=== PATIENT | female | born 1950 | race Caucasian/White ===

== ENCOUNTER 2021-01-10 16:08 | Inpatient (IN) | payer OTHER, SELFPAY ==
[2021-01-10 17:19] VITALS: BMI 17.6
[2021-01-10 19:57] VITALS: BP 107/54; PULSE 67; RESP 18; TEMP 36.3; O2SAT 98
--- NOTE | 2021-01-10 20:36 | PC.NURSE ---
Patient arrived on unit 1630 via ambulance from [place] ED. Patient placed on 5 min safety checks. Dx: Bipolar. Legal: CV all orders received from Dr Clemente. Safety checks now q 15 min. All medications reconciled with [facility] pharmacy in [place]. Patient alert and oriented x 3. No confusion now. Reports depression and anxiety. Patient's a year ago. Patient denies SI. Patient denies AH/VH. Tox screen is negative. Covid 19 status: negative. EKG on 01/08/2021 normal Patient's admission assessment to be completed when patient available. All legals and admission paperwork signed by patient. Medical dx: COPD, Hyperlipidemia, Hypothyroid.
[2021-01-10] MEDS: OXcarbazepine 300 MG TABLET 600 MG PO (21:11)
[2021-01-10] MEDS: Atorvastatin Calcium 10 MG TABLET PO (21:11)
[2021-01-11 09:33] VITALS: BP 99/53; PULSE 60; RESP 18; TEMP 37; O2SAT 97
[2021-01-11] MEDS: Escitalopram Oxalate 10 MG TABLET PO (09:39)
[2021-01-11] MEDS: OXcarbazepine 300 MG TABLET PO (09:39)
[2021-01-11] MEDS: Acetaminophen 325 MG TABLET 650 MG PO (09:39)
[2021-01-11 13:54] VITALS: BMI 17.6
--- NOTE | 2021-01-11 13:59 | MHC.CLN ---
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
--- NOTE | 2021-01-11 14:41 | HO.PSYADMNOT ---
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 The patient carries a diagnosis of bipolar disorder diagnosis in her late 30s with a prior admission to the hospital when she was 24 due to suicidal ideation. She has been following outpatient services in [place] and for the last months, she had had several of well-being checks by the police due to her failure to thrive. The patient reported that her last February and since then she has had depressive symptoms elicited by depressed mood, anhedonia, lack of energy, feelings of hopelessness and passive suicidal ideation. She had a fracture her hip last August, she got surgery and then listened to subacute rehab but when she was referred to her home the patient showed severe anhedonia and she was on her bed unable to opening the door for [employer] Whe[employer]. Her son called several times to the hospital in the last weeks for safety checks to the police. The patient was visited by the police and a safety check and she was lying on her bed and able to take care of herself. Apparently she has lost more than 50 lb in the last 6 months and she has passive suicidal ideation with severe depressive symptoms. On interview, the patient denies manic symptoms she denies active suicidal ideation but she admitted to passive suicidal ideation and she was unable to take care of herself. Past Psychiatric History: She was diagnosed of bipolar disorder her early 30s, her 1st psychiatric admission was in his mid 20s for suicidal attempt by cutting herself on the neck. She attends regularly treatment for psychiatric treatment at [facility]. Medical Evaluation Reviewed: Hospitalist Oneil Pending [facility] Narrative: Hypothyroidism, Increased lipid profile Osteoporosis. Narrative: Reduction of hip fracture Family History: Her mother suffer from depression Social History: The patient is the 3rd of 4 siblings, her milestones were achieved at expected age, she was raised by her parents that she had a good childhood. She got her GED and later sheath into college. She was in her 20s and she had 1 child. 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 She reported that she has good social support provided by her son Substance History: . Denies Trauma History: Denies. Diagnostics Vital Signs (24Hr): Vital Signs - 24 hr 01/10/21 19:57 01/11/21 09:33 Temperature 97.3 F 98.6 F Pulse Rate 67 60 Respiratory Rate 18 18 Blood Pressure 107/54 L 99/53 L Pulse Oximetry 98 97 Body Mass Index 17.6 Meds/Allergies Meds Home Medications Acetaminophen (Acetaminophen 325 Mg Tablet) 650 mg PO Q6H PRN PRN Reason: Headache/Pain Mild Scale (1-3) Last Admin: 01/11/21 09:39 Dose: 650 mg Documented by: Al Hydroxide/Mg Hydroxide (Magnesium Hydrox/Alum Hydrox 30 Ml Oral.Susp) 30 ml PO Q6H PRN PRN Reason: Heartburn/Nausea Atorvastatin Calcium (Atorvastatin Calcium 10 Mg Tablet) 10 mg PO BEDTIME [facility] Last Admin: 01/10/21 21:11 Dose: 10 mg Documented by: Escitalopram Oxalate (Escitalopram Oxalate 10 Mg Tablet) 10 mg PO DAILY [facility] Last Admin: 01/11/21 09:39 Dose: 10 mg Documented by: Hydroxyzine HCl (Hydroxyzine Hcl 25 Mg Tablet) 25 mg PO BEDTIME PRN PRN Reason: Anxiety Levothyroxine Sodium (Levothyroxine Sodium 75 Mcg Tablet) 75 mcg PO DAILY@0600 [facility] Last Admin: 01/11/21 09:49 Dose: Not Given Documented by: Magnesium Hydroxide (Milk Of Magnesia 30 Ml Oral.Susp) 30 ml PO DAILY PRN PRN Reason: Constipation Non-Formulary Medication (Melatonin) 6 mg PO BEDTIME PRN PRN Reason: Insomnia Oxcarbazepine (Oxcarbazepine 300 Mg Tablet) 600 mg PO BEDTIME [facility] Last Admin: 01/10/21 21:11 Dose: 600 mg Documented by: Oxcarbazepine (Oxcarbazepine 300 Mg Tablet) 300 mg PO DAILY [facility] Last Admin: 01/11/21 09:39 Dose: 300 mg Documented by: Trazodone HCl (Trazodone Hcl 50 Mg Tablet) 50 mg PO BEDTIME PRN PRN Reason: Insomnia Allergies Allergies Allergy/AdvReac Type Severity Reaction Status Date / Time codeine AdvReac Gastrointestinal Verified 01/10/21 17:29 Upset Mental Status Exam Mental Status Exam Patient Appearance: Well Grooomed and Unkempt Patient Orientation: Person Level of Consciousness: Awake Patient Behavior: Appropriate Mood Description: Calm and Constricted Affect Description: Depressed Patient Cognition Impaired: No Ability to Follow Directions: Good Speech Pattern: Clear Hallucinations: None Delusions: Not Present Thought Process: Intact Thought Content: positive for Circumstantial Depressive Symptoms: Changes in Appetite, Crying Spells and Significant Weight Loss Judgement: Fair Judgement and Insight: Limited insight Assessment & Plan Assessment & Plan (1) Bipolar disorder with severe depression: Status: Acute Code(s): F31.4 - Bipolar disorder, current episode depressed, severe, without psychotic features Assessment and Plan: The patient is an elderly female with a long history of bipolar with several psychosocial stressors such as the of her , recent hip fracture and limited social support with failure to thrive and passive suicidal ideation. Plan 1. Continue Trileptal as mood stabilizer. 2 discontinue Citalopram . 3. Start Wellbutrin to target depression. 4. Gather collateral information. 5. Arrange a family meeting with her son. Reason for continued inpatient stay Substantial Risk for: harm to self, inability to function, rapid decompensation and med/psych decompensation
[2021-01-11 18:33] VITALS: BP 115/53; PULSE 63; RESP 17; TEMP 36.6; O2SAT 98
[2021-01-11] MEDS: OXcarbazepine 300 MG TABLET 600 MG PO (21:00)
[2021-01-11] MEDS: Atorvastatin Calcium 10 MG TABLET PO (21:00)
[2021-01-12] MEDS: Levothyroxine Sodium 75 MCG TABLET PO (07:01)
[2021-01-12 09:27] VITALS: BP 103/52; PULSE 65; RESP 16; TEMP 37.1; O2SAT 98
[2021-01-12] MEDS: buPROPion HCl XL 150 MG TAB.ER.24H PO (09:28)
[2021-01-12] MEDS: OXcarbazepine 300 MG TABLET PO (09:31)
[2021-01-12] MEDS: Acetaminophen 325 MG TABLET 650 MG PO (09:31)
--- NOTE | 2021-01-12 11:50 | P.PNPSI_ITS ---
Subjective Subjective Date of Service: 01/12/21 Reason For Visit: depression Subjective Notes: Conditional Voluntary Healthcare Proxy: No Guardianship: No Medical Problems Affecting Mental Status: No Interim History: The nursing staff reported the patient has been quiet and dysphoric, a little snacking times. Today we had a meeting with her son over Zoom and he reported no history of manic episodes and depressive episodes that has impacted his relation. Today she reported that she is depressed but no side effects with the change of medication. Her son described that her mood remains unstable bleeding episodes of darell and depression and currently she is depressed. We have discussed about treatment options regarding mood stabilizers. Medication Compliance: Yes Side effects from medications: No Attending Groups: Yes Review of Systems Acute medical concerns: No Medical Review of Systems: unchanged Mental Status Exam Mental Status Exam Patient Appearance: Appropriate Patient Orientation: Person, Place and Situation Level of Consciousness: Awake Patient Behavior: Guarded and Cooperative Mood Description: Withdrawn Affect Description: Depressed Patient Cognition Impaired: No Ability to Follow Directions: Fair Speech Pattern: Clear Hallucinations: None Delusions: Not Present Thought Process: Slowed Thinking Thought Content: positive for Circumstantial and positive for Poverty of Content Judgement: Fair Diagnostics Vital Signs (24Hr): Vital Signs - 24 hr 01/11/21 18:33 01/12/21 09:27 Temperature 97.9 F 98.7 F Pulse Rate 63 65 Respiratory Rate 17 16 Blood Pressure 115/53 L 103/52 L Pulse Oximetry 98 98 Body Mass Index 17.6 Medications Medications Current Medications Acetaminophen (Acetaminophen 325 Mg Tablet) 650 mg PO Q6H PRN PRN Reason: Headache/Pain Mild Scale (1-3) Last Admin: 01/12/21 09:31 Dose: 650 mg Documented by: Al Hydroxide/Mg Hydroxide (Magnesium Hydrox/Alum Hydrox 30 Ml Oral.Susp) 30 ml PO Q6H PRN PRN Reason: Heartburn/Nausea Atorvastatin Calcium (Atorvastatin Calcium 10 Mg Tablet) 10 mg PO BEDTIME [facility] Last Admin: 01/11/21 21:00 Dose: 10 mg Documented by: Bupropion HCl (Bupropion Hcl Xl 150 Mg Tab.Er.24h) 150 mg PO DAILY [facility] Last Admin: 01/12/21 09:28 Dose: 150 mg Documented by: Hydroxyzine HCl (Hydroxyzine Hcl 25 Mg Tablet) 25 mg PO BEDTIME PRN PRN Reason: Anxiety Levothyroxine Sodium (Levothyroxine Sodium 75 Mcg Tablet) 75 mcg PO DAILY@0600 [facility] Last Admin: 01/12/21 07:01 Dose: 75 mcg Documented by: Magnesium Hydroxide (Milk Of Magnesia 30 Ml Oral.Susp) 30 ml PO DAILY PRN PRN Reason: Constipation Non-Formulary Medication (Melatonin) 6 mg PO BEDTIME PRN PRN Reason: Insomnia Oxcarbazepine (Oxcarbazepine 300 Mg Tablet) 600 mg PO BEDTIME [facility] Last Admin: 01/11/21 21:00 Dose: 600 mg Documented by: Oxcarbazepine (Oxcarbazepine 300 Mg Tablet) 300 mg PO DAILY [facility] Last Admin: 01/12/21 09:31 Dose: 300 mg Documented by: Trazodone HCl (Trazodone Hcl 50 Mg Tablet) 50 mg PO BEDTIME PRN PRN Reason: Insomnia Allergies Allergies Allergy/AdvReac Type Severity Reaction Status Date / Time codeine AdvReac Gastrointestinal Verified 01/10/21 17:29 Upset Assessment & Plan Assessment & Plan (1) Bipolar disorder with severe depression: Status: Acute Code(s): F31.4 - Bipolar disorder, current episode depressed, severe, without psychotic features Assessment and Plan: The patient is an elderly female with a long history of bipolar with several psychosocial stressors such as the of her , recent hip fracture and limited social support with failure to thrive and passive suicidal ideation. Plan 1. Continue Trileptal as mood stabilizer. 2 discontinue Citalopram . 3. Keep Wellbutrin to target depression. 4. Gather collateral information. Greater than 50% of the session was spent on counseling and/or coordination of care Reason for contiued inpatient stay Substantial Risk for: inability to function, rapid decompensation and med/psych decompensation
--- NOTE | 2021-01-12 15:05 | PM.IMCN ---
History of Present Illness Data of Consult Service Date: 01/12/21 Requesting physician: Parker Bolton Primary Care Provider: Unknown Physician HPI Reason for consult: Medical H&P This is a 70 yo F who is admitted to the [facility]. Medical consult for Medical H&P. Patient is seen and examined in her room. She reports constipation but otherwise no physical complaints. Review of Systems Review of Systems: General - no fevers or chills Cardiovascular - no chest pain Respiratory - no shortness of breath or cough Abdominal- no abdominal pain, nausea, vomiting, diarrhea Yes all other systems are reviewed and are negative (psych not reviewed) [facility] Medical History (Updated 01/12/21 @ 15:21 by James Lewis MD) Hyperlipidemia Hypothyroidism Pertinent family history: Depression in mother Surgical History (Updated 01/12/21 @ 15:18 by James Lewis MD) History of hip surgery Social History Household Members: None Housing: House Do you presently have visiting nurse or other home services: No Unable to assess alcohol history related to: Unknown Patient Tobacco Use Status: Former Tobacco user Tobacco use type: Cigarette Smoked in Last 30 Days: No e-Cigarette/Vaping Use: Former Use Patient Interested in Nicotine Replacement: No Patient Given Instructions on How to Stop Smoking: No (Pt. reports quitting a long time ago ) Second Hand Smoke Exposure: No Use of substances other than those prescribed or required for medical reasons: Unknown Currently Displaying Signs/Symptoms of Drug Intoxication Withdrawal: No Advance Directives: No Advance Directives Information Provided: No Do you have thoughts of harming others: None Do you have a plan to hurt others: No Plan Recently lost weight without trying: Yes How much weight loss: 34pounds or more Eating poorly because of decreased appetite: Yes Nutrition screen score: 7 Nutrition Risks: Anorexia Patient : No : No Poor oral hygiene: No service: No Sexual orientation: Straight/Heterosexual Meds Allergies Allergy/AdvReac Type Severity Reaction Status Date / Time codeine AdvReac Gastrointestinal Verified 01/10/21 17:29 Upset Active Medications: Current Medications Acetaminophen (Acetaminophen 325 Mg Tablet) 650 mg PO Q6H PRN PRN Reason: Headache/Pain Mild Scale (1-3) Last Admin: 01/12/21 09:31 Dose: 650 mg Documented by: Al Hydroxide/Mg Hydroxide (Magnesium Hydrox/Alum Hydrox 30 Ml Oral.Susp) 30 ml PO Q6H PRN PRN Reason: Heartburn/Nausea Atorvastatin Calcium (Atorvastatin Calcium 10 Mg Tablet) 10 mg PO BEDTIME [facility] Last Admin: 01/11/21 21:00 Dose: 10 mg Documented by: Bupropion HCl (Bupropion Hcl Xl 150 Mg Tab.Er.24h) 150 mg PO DAILY [facility] Last Admin: 01/12/21 09:28 Dose: 150 mg Documented by: Docusate Sodium (Docusate Sodium 100 Mg Capsule) 100 mg PO BID PRN PRN Reason: Constipation Hydroxyzine HCl (Hydroxyzine Hcl 25 Mg Tablet) 25 mg PO BEDTIME PRN PRN Reason: Anxiety Levothyroxine Sodium (Levothyroxine Sodium 75 Mcg Tablet) 75 mcg PO DAILY@0600 [facility] Last Admin: 01/12/21 07:01 Dose: 75 mcg Documented by: Magnesium Hydroxide (Milk Of Magnesia 30 Ml Oral.Susp) 30 ml PO DAILY PRN PRN Reason: Constipation Non-Formulary Medication (Melatonin) 6 mg PO BEDTIME PRN PRN Reason: Insomnia Oxcarbazepine (Oxcarbazepine 300 Mg Tablet) 600 mg PO BEDTIME [facility] Last Admin: 01/11/21 21:00 Dose: 600 mg Documented by: Oxcarbazepine (Oxcarbazepine 300 Mg Tablet) 300 mg PO DAILY [facility] Last Admin: 01/12/21 09:31 Dose: 300 mg Documented by: Trazodone HCl (Trazodone Hcl 50 Mg Tablet) 50 mg PO BEDTIME PRN PRN Reason: Insomnia Home Medications Medication Instructions Recorded Confirmed Last Taken Type citalopram 40 mg PO DAILY 01/10/21 01/10/21 Unknown History levothyroxine 75 mcg capsule 75 mcg PO DAILY 01/10/21 01/10/21 Unknown History melatonin 5 mg tablet 5 mg PO BEDTIME PRN 01/10/21 01/10/21 Unknown History oxcarbazepine 300 mg tablet 300 mg PO QAM 01/10/21 01/10/21 Unknown History oxcarbazepine 300 mg tablet 600 mg PO BEDTIME 01/10/21 01/10/21 Unknown History simvastatin 20 mg tablet 20 mg PO BEDTIME 01/10/21 01/10/21 Unknown History Physical Exam Vital Signs and Narrative: Vital Signs: Last Vital Signs Temp 98.7 F 01/12/21 09:27 Pulse 65 01/12/21 09:27 Resp 16 01/12/21 09:27 BP 103/52 L 01/12/21 09:27 Pulse Ox 98 01/12/21 09:27 Body Mass Index 17.6 Const: Other: Constitutional - Awake and Alert, No apparent distress Eyes - PERRLA, EOMI Cardiovascular - S1S2, RRR, No edema Respiratory - Normal lung expansion, Normal respiratory effort, No respiratory distress, CTA bilaterally Gastrointestinal - NT / ND; +BS; No rebound or guarding - No CVA tenderness Extremities - no calf tenderness bilaterally, no swelling Musculoskeletal - Normal inspection, normal ROM Skin - Warm/Dry Neurological - Alert & oriented x3, No focal deficit Assessment and Plan (1) Routine medical exam: Status: Acute This is a 70 yo F admitted to [facility]. Medical services consulted for routine medical H&P. Patient is medically stable at this time. She does complain of some constipation, but otherwise no issues. Continue her baseline synthroid / statin. Will sign off. Please re-consult PRN.
--- NOTE | 2021-01-12 15:42 | MHC.CLN ---
F/U PATIENT REPORTED THAT SHE IS EATING OK AND DISLIKES ENSURE. DOES NOT WANT SUPPLEMENT AND DISCONTINUED. DISCUSSED WITH STAFF PROVIDING SNACKS FROM UNIT. CONTINUE TO FOLLOW,
[2021-01-12] MEDS: OXcarbazepine 300 MG TABLET 600 MG PO (20:23)
[2021-01-12 21:38] VITALS: BP 115/54; PULSE 60; RESP 17; TEMP 37.1; O2SAT 99
[2021-01-12] MEDS: Atorvastatin Calcium 10 MG TABLET PO (22:15)
[2021-01-13] MEDS: Levothyroxine Sodium 75 MCG TABLET PO (06:03)
[2021-01-13 08:00] VITALS: BP 118/58; PULSE 60; TEMP 36.7; O2SAT 98
[2021-01-13] MEDS: OXcarbazepine 300 MG TABLET PO (09:48)
[2021-01-13] MEDS: buPROPion HCl XL 150 MG TAB.ER.24H PO (09:48)
[2021-01-13 18:00] VITALS: BP 88/57; PULSE 63; RESP 17; TEMP 36.7; O2SAT 98
[2021-01-13] MEDS: OXcarbazepine 300 MG TABLET 600 MG PO (19:50)
[2021-01-13] MEDS: Atorvastatin Calcium 10 MG TABLET PO (19:50)
--- NOTE | 2021-01-13 21:04 | HO.PSYCHPN ---
Subjective Subjective Date of Service: 01/14/21 Reason For Visit: depression Healthcare Proxy: No Guardianship: No Medical Problems Affecting Mental Status: No Interim History: Pt is calm and cooperative. H and P reviewed. No complaints. Does state she feeels depressed. No SI. Wellbutrin added. Medication Compliance: Yes Review of Systems Acute medical concerns: No Medical Review of Systems: unchanged Review of Systems Review of Systems General - no fevers or chills Cardiovascular - no chest pain Respiratory - no shortness of breath or cough Abdominal- no abdominal pain, nausea, vomiting, diarrhea Yes all other systems are reviewed and are negative (psych not reviewed) Mental Status Exam Mental Status Exam Patient Appearance: Appropriate Patient Orientation: Person, Place and Situation Level of Consciousness: Awake Patient Behavior: Guarded and Cooperative Mood Description: Withdrawn Affect Description: Depressed Patient Cognition Impaired: No Ability to Follow Directions: Fair Speech Pattern: Clear Thought Content: positive for Poverty of Content Depressive Symptoms: Unhappiness Judgement: Fair Diagnostics Vital Signs (24Hr): Vital Signs - 24 hr 01/12/21 21:38 01/13/21 08:00 01/13/21 18:00 Temperature 98.7 F 98.0 F 98.1 F Pulse Rate 60 60 63 Respiratory Rate 17 17 Blood Pressure 115/54 L 118/58 L 88/57 L Pulse Oximetry 99 98 98 Body Mass Index 17.6 Medications Medications Current Medications Acetaminophen (Acetaminophen 325 Mg Tablet) 650 mg PO Q6H PRN PRN Reason: Headache/Pain Mild Scale (1-3) Last Admin: 01/12/21 09:31 Dose: 650 mg Documented by: Al Hydroxide/Mg Hydroxide (Magnesium Hydrox/Alum Hydrox 30 Ml Oral.Susp) 30 ml PO Q6H PRN PRN Reason: Heartburn/Nausea Atorvastatin Calcium (Atorvastatin Calcium 10 Mg Tablet) 10 mg PO BEDTIME [facility] Last Admin: 01/13/21 19:50 Dose: 10 mg Documented by: Bupropion HCl (Bupropion Hcl Xl 150 Mg Tab.Er.24h) 150 mg PO DAILY [facility] Last Admin: 01/13/21 09:48 Dose: 150 mg Documented by: Docusate Sodium (Docusate Sodium 100 Mg Capsule) 100 mg PO BID PRN PRN Reason: Constipation Hydroxyzine HCl (Hydroxyzine Hcl 25 Mg Tablet) 25 mg PO BEDTIME PRN PRN Reason: Anxiety Levothyroxine Sodium (Levothyroxine Sodium 75 Mcg Tablet) 75 mcg PO DAILY@0600 [facility] Last Admin: 01/13/21 06:03 Dose: 75 mcg Documented by: Magnesium Hydroxide (Milk Of Magnesia 30 Ml Oral.Susp) 30 ml PO DAILY PRN PRN Reason: Constipation Non-Formulary Medication (Melatonin) 6 mg PO BEDTIME PRN PRN Reason: Insomnia Oxcarbazepine (Oxcarbazepine 300 Mg Tablet) 600 mg PO BEDTIME [facility] Last Admin: 01/13/21 19:50 Dose: 600 mg Documented by: Oxcarbazepine (Oxcarbazepine 300 Mg Tablet) 300 mg PO DAILY [facility] Last Admin: 01/13/21 09:48 Dose: 300 mg Documented by: Trazodone HCl (Trazodone Hcl 50 Mg Tablet) 50 mg PO BEDTIME PRN PRN Reason: Insomnia Allergies Allergies Allergy/AdvReac Type Severity Reaction Status Date / Time codeine AdvReac Gastrointestinal Verified 01/10/21 17:29 Upset Assessment & Plan Assessment & Plan (1) Routine medical exam: Status: Acute Code(s): Z00.00 - Encounter for general adult medical examination without abnormal findings Assessment and Plan: Continue Wellbutrin. No other changes in meds Assessment and Plan: This is a 70 yo F admitted to [facility]. Medical services consulted for routine medical H&P. Patient is medically stable at this time. She does complain of some constipation, but otherwise no issues. Continue her baseline synthroid / statin. Will sign off. Please re-consult PRN. Greater than 50% of the session was spent on counseling and/or coordination of care Reason for contiued inpatient stay Substantial Risk for: inability to function
[2021-01-14] MEDS: Levothyroxine Sodium 75 MCG TABLET PO (05:24)
[2021-01-14 06:00] VITALS: BP 100/65; PULSE 65; RESP 18; TEMP 36.8; O2SAT 98
--- NOTE | 2021-01-14 06:49 | HO.PSYCHPN ---
Subjective Subjective Date of Service: 01/14/21 Reason For Visit: depression Interim History: Pt is calm and cooperative. H and P reviewed. Attending groups Does state she feeels depressed. Overwhelmed. Still feels fragile. I hope I feel better . No SI. Wellbutrin added. Medication Compliance: Yes Side effects from medications: No Review of Systems Medical Review of Systems: unchanged Review of Systems Review of Systems General - no fevers or chills Cardiovascular - no chest pain Respiratory - no shortness of breath or cough Abdominal- no abdominal pain, nausea, vomiting, diarrhea Yes all other systems are reviewed and are negative (psych not reviewed) Mental Status Exam Mental Status Exam Patient Appearance: Appropriate Patient Orientation: Person, Place and Situation Level of Consciousness: Awake Patient Behavior: Guarded and Cooperative Mood Description: Withdrawn Affect Description: Depressed Patient Cognition Impaired: No Ability to Follow Directions: Fair Speech Pattern: Clear Diagnostics Vital Signs (24Hr): Vital Signs - 24 hr 01/13/21 08:00 01/13/21 18:00 Temperature 98.0 F 98.1 F Pulse Rate 60 63 Respiratory Rate 17 Blood Pressure 118/58 L 88/57 L Pulse Oximetry 98 98 Body Mass Index 17.6 Medications Medications Current Medications Acetaminophen (Acetaminophen 325 Mg Tablet) 650 mg PO Q6H PRN PRN Reason: Headache/Pain Mild Scale (1-3) Last Admin: 01/12/21 09:31 Dose: 650 mg Documented by: Al Hydroxide/Mg Hydroxide (Magnesium Hydrox/Alum Hydrox 30 Ml Oral.Susp) 30 ml PO Q6H PRN PRN Reason: Heartburn/Nausea Atorvastatin Calcium (Atorvastatin Calcium 10 Mg Tablet) 10 mg PO BEDTIME [facility] Last Admin: 01/13/21 19:50 Dose: 10 mg Documented by: Bupropion HCl (Bupropion Hcl Xl 150 Mg Tab.Er.24h) 150 mg PO DAILY [facility] Last Admin: 01/13/21 09:48 Dose: 150 mg Documented by: Docusate Sodium (Docusate Sodium 100 Mg Capsule) 100 mg PO BID PRN PRN Reason: Constipation Hydroxyzine HCl (Hydroxyzine Hcl 25 Mg Tablet) 25 mg PO BEDTIME PRN PRN Reason: Anxiety Levothyroxine Sodium (Levothyroxine Sodium 75 Mcg Tablet) 75 mcg PO DAILY@0600 [facility] Last Admin: 01/14/21 05:24 Dose: 75 mcg Documented by: Magnesium Hydroxide (Milk Of Magnesia 30 Ml Oral.Susp) 30 ml PO DAILY PRN PRN Reason: Constipation Non-Formulary Medication (Melatonin) 6 mg PO BEDTIME PRN PRN Reason: Insomnia Oxcarbazepine (Oxcarbazepine 300 Mg Tablet) 600 mg PO BEDTIME [facility] Last Admin: 01/13/21 19:50 Dose: 600 mg Documented by: Oxcarbazepine (Oxcarbazepine 300 Mg Tablet) 300 mg PO DAILY [facility] Last Admin: 01/13/21 09:48 Dose: 300 mg Documented by: Trazodone HCl (Trazodone Hcl 50 Mg Tablet) 50 mg PO BEDTIME PRN PRN Reason: Insomnia Allergies Allergies Allergy/AdvReac Type Severity Reaction Status Date / Time codeine AdvReac Gastrointestinal Verified 01/10/21 17:29 Upset Assessment & Plan Assessment & Plan (1) Routine medical exam: Status: Acute Code(s): Z00.00 - Encounter for general adult medical examination without abnormal findings Assessment and Plan: Continue Wellbutrin. No other changes in meds Assessment and Plan: This is a 70 yo F admitted to [facility]. Medical services consulted for routine medical H&P. Patient is medically stable at this time. She does complain of some constipation, but otherwise no issues. Continue her baseline synthroid / statin. Will sign off. Please re-consult PRN. Greater than 50% of the session was spent on counseling and/or coordination of care Patient educated on: diagnosis Reason for contiued inpatient stay Substantial Risk for: inability to function
[2021-01-14] MEDS: buPROPion HCl XL 150 MG TAB.ER.24H PO (08:28)
[2021-01-14] MEDS: OXcarbazepine 300 MG TABLET PO (08:28)
[2021-01-14 18:00] VITALS: BP 106/55; PULSE 68; RESP 18; TEMP 35.6; O2SAT 96
[2021-01-14] MEDS: OXcarbazepine 300 MG TABLET 600 MG PO (20:17)
[2021-01-14] MEDS: Atorvastatin Calcium 10 MG TABLET PO (20:18)
[2021-01-14] MEDS: traZODone HCL 50 MG TABLET PO (21:03)
[2021-01-15] MEDS: Levothyroxine Sodium 75 MCG TABLET PO (05:28)
[2021-01-15 06:00] VITALS: BP 102/51; PULSE 68; RESP 18; TEMP 36.4; O2SAT 98
[2021-01-15 06:36] LABS: MANUAL DIFF FLAG NO
[2021-01-15 06:47] LABS: Basophils Percent Auto 0.6 % (0-2); Eosinophils Absolute Auto 0.1 X10*3/uL (0.0-0.4); Eosinophils Percent Auto 1.8 % (0-4); Hematocrit 31.8 % (37-47); Hemoglobin 10.5 g/dl (12.0-16.0); Imm Gran Abs Auto 0.01 X10*3/uL (0.00-0.03); Imm Gran Pct Auto 0.3 % (0.0-0.4); Lymphocytes Absolute Auto 0.9 X10*3/uL (1.2-4.9); Lymphocytes Percent Auto 27.3 % (20-40); Mean Corpuscular Hemoglobin 31.8 pg (27.0-33.0); Mean Corpuscular Volume 96.4 fL (80-98); Mean Platelet Volume 10.3 fL (9.4-12.3); Monocytes Absolute Auto 0.3 X10*3/uL (0.1-1.2); Monocytes Percent Auto 9.2 % (2-11); Neutrophils Percent Auto 60.8 % (45-73); Platelet Count 200 X10*3/uL (160-400); Red Cell Distribution Width 12.7 % (11.0-16.0); White Blood Count 3.3 X10*3/uL (4.8-10.8)
[2021-01-15 06:50] LABS: Estimated Average Glucose 97 mg/dL
[2021-01-15 06:51] LABS: Anion Gap 10 (12-20); Blood Urea Nitrogen 9 mg/dL (9-16); Calcium 8.2 mg/dL (8.4-10.2); Carbon Dioxide 28 mmol/L (22-29); Chloride 102 mmol/L (96-108); Cholesterol 149 mg/dL; Creatinine Clr Calc Pharmacy 77.9; Estimated Glomerular Filt Rate > 60; Glucose Random 86 mg/dL (60-115); HDL Cholesterol 51 mg/dL; LDL Cholesterol Calculated 86 mg/dl; Potassium 4.1 mmol/L (3.3-5.1); Sodium 136 mmol/L (135-145); Triglycerides 62 mg/dL
[2021-01-15 07:12] LABS: Thyroid Stimulating Hormone 1.06 uIU/mL (0.32-4.0)
[2021-01-15] MEDS: OXcarbazepine 300 MG TABLET PO (07:54)
[2021-01-15] MEDS: buPROPion HCl XL 150 MG TAB.ER.24H PO (07:54)
--- NOTE | 2021-01-15 12:38 | HO.PSYCHPN ---
Subjective Subjective Date of Service: 01/15/21 Reason For Visit: depression Subjective Notes: Conditional Voluntary Interim History: The nursing staff reported that the patient has been more social over the weekend. She has been fully compliant with treatment. Last Friday we had a family meeting with her son who reported a long history of darell and depression. On interview, the patient denies new symptoms with Wellbutrin she agreed to increase up to 300 mg a day. Will review blood work under were no new findings besides a mild anemia. Hemoglobin A1c, lipid profile and glucose were under normal limits so it is safe to use atypical antipsychotics in her case. Mental Status Exam Mental Status Exam Patient Appearance: Disheveled Patient Orientation: Person Level of Consciousness: Awake Patient Behavior: Cooperative and Passive Mood Description: Depressed Affect Description: Constricted Patient Cognition Impaired: No Ability to Follow Directions: Good Speech Pattern: Clear Memory Description: Intact Hallucinations: None Delusions: Not Present Thought Content: positive for Circumstantial Depressive Symptoms: Feelings of Worthlessness and Feelings of Guilt Judgement: Fair Diagnostics Vital Signs (24Hr): Vital Signs - 24 hr 01/14/21 18:00 01/15/21 06:00 Temperature 96.1 F L 97.5 F Pulse Rate 68 68 Respiratory Rate 18 18 Blood Pressure 106/55 L 102/51 L Pulse Oximetry 96 98 Body Mass Index 17.6 Labs Results: 01/15/21 06:18 01/15/21 06:18 Labs: Laboratory Results - last 48 hr 01/15/21 01/15/21 01/15/21 06:18 06:18 06:18 WBC 3.3 L RBC 3.30 L Hgb 10.5 L Hct 31.8 L MCV 96.4 MCH 31.8 MCHC 33.0 RDW 12.7 Plt Count 200 MPV 10.3 Immature Gran % (Auto) 0.3 Neut % (Auto) 60.8 Lymph % (Auto) 27.3 [place] % (Auto) 9.2 Eos % (Auto) 1.8 Baso % (Auto) 0.6 Lymph # (Auto) 0.9 L [place] # (Auto) 0.3 Eos # (Auto) 0.1 Baso # (Auto) 0.0 Abs Immat Gran (auto) 0.01 Absolute Neuts (auto) 2.0 Absolute Nucleated RBC 0.000 Nucleated RBC % (auto) 0.0 Sodium 136 Potassium 4.1 Chloride 102 Carbon Dioxide 28 Anion Gap 10 L BUN 9 Creatinine 0.54 Estim Creat Clear Calc 77.9 Estimated GFR > 60 Random Glucose 86 Estimat Average Glucose 97 Hemoglobin A1c % 5.0 Calcium 8.2 L Triglycerides 62 Cholesterol 149 LDL Cholesterol, Calc 86 HDL Cholesterol 51 TSH 1.06 Medications Medications Current Medications Acetaminophen (Acetaminophen 325 Mg Tablet) 650 mg PO Q6H PRN PRN Reason: Headache/Pain Mild Scale (1-3) Last Admin: 01/12/21 09:31 Dose: 650 mg Documented by: Al Hydroxide/Mg Hydroxide (Magnesium Hydrox/Alum Hydrox 30 Ml Oral.Susp) 30 ml PO Q6H PRN PRN Reason: Heartburn/Nausea Atorvastatin Calcium (Atorvastatin Calcium 10 Mg Tablet) 10 mg PO BEDTIME [facility] Last Admin: 01/14/21 20:18 Dose: 10 mg Documented by: Bupropion HCl (Bupropion Hcl Xl 300 Mg Tab.Er.24h) 300 mg PO DAILY [facility] Docusate Sodium (Docusate Sodium 100 Mg Capsule) 100 mg PO BID PRN PRN Reason: Constipation Hydroxyzine HCl (Hydroxyzine Hcl 25 Mg Tablet) 25 mg PO BEDTIME PRN PRN Reason: Anxiety Levothyroxine Sodium (Levothyroxine Sodium 75 Mcg Tablet) 75 mcg PO DAILY@0600 [facility] Last Admin: 01/15/21 05:28 Dose: 75 mcg Documented by: Magnesium Hydroxide (Milk Of Magnesia 30 Ml Oral.Susp) 30 ml PO DAILY PRN PRN Reason: Constipation Non-Formulary Medication (Melatonin) 6 mg PO BEDTIME PRN PRN Reason: Insomnia Oxcarbazepine (Oxcarbazepine 300 Mg Tablet) 600 mg PO BEDTIME [facility] Last Admin: 01/14/21 20:17 Dose: 600 mg Documented by: Oxcarbazepine (Oxcarbazepine 300 Mg Tablet) 300 mg PO DAILY [facility] Last Admin: 01/15/21 07:54 Dose: 300 mg Documented by: Trazodone HCl (Trazodone Hcl 50 Mg Tablet) 50 mg PO BEDTIME PRN PRN Reason: Insomnia Last Admin: 01/14/21 21:03 Dose: 50 mg Documented by: Allergies Allergies Allergy/AdvReac Type Severity Reaction Status Date / Time codeine AdvReac Gastrointestinal Verified 01/10/21 17:29 Upset Assessment & Plan Assessment & Plan (1) Routine medical exam: Status: Acute Code(s): Z00.00 - Encounter for general adult medical examination without abnormal findings Assessment and Plan: Continue Wellbutrin. No other changes in meds Assessment and Plan: The patient is a 62-year-old female with a long history of bipolar disorder who was admitted for failure to thrive and severe depressive symptoms. Plan 1. Increase Wellbutrin XL up to 300 mg . 2. Keep the rest the same. Greater than 50% of the session was spent on counseling and/or coordination of care Reason for contiued inpatient stay Substantial Risk for: inability to function, rapid decompensation and med/psych decompensation
--- NOTE | 2021-01-15 13:48 | MHC.CLN ---
F/U STAFF REPORTS THAT PATIENT ATE WELL TODAY AT BREAKFAST AND LUNCH. DIET=REGULAR. NO SUPPLEMENT PER PATIENT PREFERENCE. WEIGHT STABLE.
[2021-01-15 19:51] VITALS: BP 101/49; PULSE 72; RESP 16; TEMP 35.6; O2SAT 97
[2021-01-15] MEDS: OXcarbazepine 300 MG TABLET 600 MG PO (20:38)
[2021-01-15] MEDS: Atorvastatin Calcium 10 MG TABLET PO (20:39)
[2021-01-16] MEDS: Levothyroxine Sodium 75 MCG TABLET PO (05:59)
[2021-01-16 06:00] VITALS: BP 99/52; PULSE 68; TEMP 36.9; O2SAT 97
[2021-01-16] MEDS: buPROPion HCl XL 300 MG TAB.ER.24H PO (09:39)
[2021-01-16] MEDS: OXcarbazepine 300 MG TABLET PO (09:41)
--- NOTE | 2021-01-16 10:52 | P.PNPSI_ITS ---
Subjective Subjective Date of Service: 01/16/21 Reason For Visit: depression Subjective Notes: Conditional Voluntary Interim History: The nursing staff reported that the patient has been depressive and isolative, spending most of the time in her room. She has eaten in the common areas that she has attended a few groups yesterday. On interview the patient reports depressed mood and lack of energy, no side effects with the new dose of Wellbutrin. Medication Compliance: Yes Side effects from medications: No Attending Groups: Intermittent Review of Systems Acute medical concerns: No Medical Review of Systems: unchanged Mental Status Exam Mental Status Exam Patient Appearance: Well Grooomed Patient Orientation: Person and Situation Level of Consciousness: Awake Patient Behavior: Appropriate and Cooperative Mood Description: Constricted and Depressed Affect Description: Constricted Patient Cognition Impaired: No Ability to Follow Directions: Fair Speech Pattern: Clear Hallucinations: None Delusions: Not Present Thought Process: Distracted and Slowed Thinking Thought Content: positive for Circumstantial Judgement: Fair Diagnostics Vital Signs (24Hr): Vital Signs - 24 hr 01/15/21 19:51 01/16/21 06:00 Temperature 96.1 F L 98.5 F Pulse Rate 72 68 Respiratory Rate 16 Blood Pressure 101/49 L 99/52 L Pulse Oximetry 97 97 Body Mass Index 17.6 Labs Results: 01/15/21 06:18 01/15/21 06:18 Labs: Laboratory Results - last 48 hr 01/15/21 01/15/21 01/15/21 06:18 06:18 06:18 WBC 3.3 L RBC 3.30 L Hgb 10.5 L Hct 31.8 L MCV 96.4 MCH 31.8 MCHC 33.0 RDW 12.7 Plt Count 200 MPV 10.3 Immature Gran % (Auto) 0.3 Neut % (Auto) 60.8 Lymph % (Auto) 27.3 [place] % (Auto) 9.2 Eos % (Auto) 1.8 Baso % (Auto) 0.6 Lymph # (Auto) 0.9 L [place] # (Auto) 0.3 Eos # (Auto) 0.1 Baso # (Auto) 0.0 Abs Immat Gran (auto) 0.01 Absolute Neuts (auto) 2.0 Absolute Nucleated RBC 0.000 Nucleated RBC % (auto) 0.0 Sodium 136 Potassium 4.1 Chloride 102 Carbon Dioxide 28 Anion Gap 10 L BUN 9 Creatinine 0.54 Estim Creat Clear Calc 77.9 Estimated GFR > 60 Random Glucose 86 Estimat Average Glucose 97 Hemoglobin A1c % 5.0 Calcium 8.2 L Triglycerides 62 Cholesterol 149 LDL Cholesterol, Calc 86 HDL Cholesterol 51 TSH 1.06 Medications Medications Current Medications Acetaminophen (Acetaminophen 325 Mg Tablet) 650 mg PO Q6H PRN PRN Reason: Headache/Pain Mild Scale (1-3) Last Admin: 01/12/21 09:31 Dose: 650 mg Documented by: Al Hydroxide/Mg Hydroxide (Magnesium Hydrox/Alum Hydrox 30 Ml Oral.Susp) 30 ml PO Q6H PRN PRN Reason: Heartburn/Nausea Atorvastatin Calcium (Atorvastatin Calcium 10 Mg Tablet) 10 mg PO BEDTIME [facility] Last Admin: 01/15/21 20:39 Dose: 10 mg Documented by: Bupropion HCl (Bupropion Hcl Xl 300 Mg Tab.Er.24h) 300 mg PO DAILY [facility] Last Admin: 01/16/21 09:39 Dose: 300 mg Documented by: Docusate Sodium (Docusate Sodium 100 Mg Capsule) 100 mg PO BID PRN PRN Reason: Constipation Hydroxyzine HCl (Hydroxyzine Hcl 25 Mg Tablet) 25 mg PO BEDTIME PRN PRN Reason: Anxiety Levothyroxine Sodium (Levothyroxine Sodium 75 Mcg Tablet) 75 mcg PO DAILY@0600 [facility] Last Admin: 01/16/21 05:59 Dose: 75 mcg Documented by: Magnesium Hydroxide (Milk Of Magnesia 30 Ml Oral.Susp) 30 ml PO DAILY PRN PRN Reason: Constipation Non-Formulary Medication (Melatonin) 6 mg PO BEDTIME PRN PRN Reason: Insomnia Trazodone HCl (Trazodone Hcl 50 Mg Tablet) 50 mg PO BEDTIME PRN PRN Reason: Insomnia Last Admin: 01/14/21 21:03 Dose: 50 mg Documented by: Allergies Allergies Allergy/AdvReac Type Severity Reaction Status Date / Time codeine AdvReac Gastrointestinal Verified 01/10/21 17:29 Upset Assessment & Plan Assessment & Plan (1) Routine medical exam: Status: Acute Code(s): Z00.00 - Encounter for general adult medical examination without abnormal findings Assessment and Plan: Continue Wellbutrin. No other changes in meds Assessment and Plan: The patient is a 62-year-old female with a long history of bipolar disorder who was admitted for failure to thrive and severe depressive symptoms. Plan 1. Increase Wellbutrin XL up to 300 mg . 2. Increase Trileptal up to 600 mg p.o. b.i.d. Greater than 50% of the session was spent on counseling and/or coordination of care Reason for contiued inpatient stay Substantial Risk for: inability to function, rapid decompensation and med/psych decompensation
[2021-01-16] MEDS: Acetaminophen 325 MG TABLET 650 MG PO ×2 (11:53→20:12)
[2021-01-16 18:00] VITALS: BP 95/46; PULSE 68; RESP 16; TEMP 36.6; O2SAT 99
[2021-01-16] MEDS: Atorvastatin Calcium 10 MG TABLET PO (20:11)
[2021-01-16] MEDS: OXcarbazepine 300 MG TABLET 600 MG PO (20:11)
[2021-01-16] MEDS: traZODone HCL 50 MG TABLET PO (20:12)
[2021-01-17] MEDS: Levothyroxine Sodium 75 MCG TABLET PO (06:18)
[2021-01-17 08:17] VITALS: BP 103/52; PULSE 67; RESP 16; TEMP 36.8; O2SAT 97
[2021-01-17] MEDS: buPROPion HCl XL 300 MG TAB.ER.24H PO (08:19)
[2021-01-17] MEDS: OXcarbazepine 300 MG TABLET 600 MG PO ×2 (08:19→19:48)
[2021-01-17] MEDS: Docusate Sodium 100 MG CAPSULE PO (11:00)
--- NOTE | 2021-01-17 12:22 | P.PNPSI_ITS ---
Subjective Subjective Date of Service: 01/17/21 Reason For Visit: depression Interim History: Per nursing, pt slightly more visible and participating in groups, social with select peers. Pt reports improvement in symptoms of depression, however, unable to provide much information as to other changes she has noticed. She reports sleeping and eating well. She reports constipation- pt decline MOM and miralax but open to combination of senna and colace. She denies SI/HI. She does report fair energy. She reports sleeping well. Medication Compliance: Yes Side effects from medications: No Attending Groups: Intermittent Review of Systems Acute medical concerns: No Review of Systems Review of Systems General - no fevers or chills Cardiovascular - no chest pain Respiratory - no shortness of breath or cough Abdominal- no abdominal pain, nausea, vomiting, diarrhea Yes all other systems are reviewed and are negative (psych not reviewed) Mental Status Exam Mental Status Exam Narrative: Appearance: casually groomed, fair hygiene in NAD Behavior:cooperative psychomotor:no agitation or retardation noted Speech:clear, normal rate/soft tone, spontaneous Thought process:mostly linear, some poverty of thought Thought content:no overt psychosis, feeling better in terms of depression but still low energy Mood: a little bit better Affect: blunted SI:none HI:none VH/AH:none Delusions:none Insight/judgment:fair x 2 Memory/cog:alert, oriented to place, situation, month not formally tested. Diagnostics Vital Signs (24Hr): Vital Signs - 24 hr 01/17/21 08:17 Temperature 98.2 F Pulse Rate 67 Respiratory Rate 16 Blood Pressure 103/52 L Pulse Oximetry 97 Body Mass Index 17.6 Labs Results: 01/15/21 06:18 01/15/21 06:18 Medications Medications Current Medications Acetaminophen (Acetaminophen 325 Mg Tablet) 650 mg PO Q6H PRN PRN Reason: Headache/Pain Mild Scale (1-3) Last Admin: 01/17/21 17:12 Dose: 650 mg Documented by: Al Hydroxide/Mg Hydroxide (Magnesium Hydrox/Alum Hydrox 30 Ml Oral.Susp) 30 ml PO Q6H PRN PRN Reason: Heartburn/Nausea Atorvastatin Calcium (Atorvastatin Calcium 10 Mg Tablet) 10 mg PO BEDTIME [facility] Last Admin: 01/17/21 19:48 Dose: 10 mg Documented by: Bupropion HCl (Bupropion Hcl Xl 300 Mg Tab.Er.24h) 300 mg PO DAILY [facility] Last Admin: 01/17/21 08:19 Dose: 300 mg Documented by: Hydroxyzine HCl (Hydroxyzine Hcl 25 Mg Tablet) 25 mg PO BEDTIME PRN PRN Reason: Anxiety Levothyroxine Sodium (Levothyroxine Sodium 75 Mcg Tablet) 75 mcg PO DAILY@0600 [facility] Last Admin: 01/17/21 06:18 Dose: 75 mcg Documented by: Magnesium Hydroxide (Milk Of Magnesia 30 Ml Oral.Susp) 30 ml PO DAILY PRN PRN Reason: Constipation Non-Formulary Medication (Melatonin) 6 mg PO BEDTIME PRN PRN Reason: Insomnia Oxcarbazepine (Oxcarbazepine 300 Mg Tablet) 600 mg PO BID [facility] Last Admin: 01/17/21 19:48 Dose: 600 mg Documented by: Senna/Docusate Sodium (Sennosides/Docusate Sodium Tablet) 2 tab PO BEDTIME [facility] Trazodone HCl (Trazodone Hcl 50 Mg Tablet) 50 mg PO BEDTIME PRN PRN Reason: Insomnia Last Admin: 01/17/21 19:58 Dose: 50 mg Documented by: Allergies Allergies Allergy/AdvReac Type Severity Reaction Status Date / Time codeine AdvReac Gastrointestinal Verified 01/10/21 17:29 Upset Assessment & Plan Assessment & Plan (1) Routine medical exam: Status: Acute Code(s): Z00.00 - Encounter for general adult medical examination without abnormal findings Assessment and Plan: Continue Wellbutrin. No other changes in meds Assessment and Plan: The patient is a 62-year-old female with a long history of bipolar disorder who was admitted for failure to thrive and severe depressive symptoms. Plan 1. continue Wellbutrin XL up to 300 mg . 2. continue Trileptal up to 600 mg p.o. b.i.d. Greater than 50% of the session was spent on counseling and/or coordination of care Reason for contiued inpatient stay Substantial Risk for: inability to function
--- NOTE | 2021-01-17 13:45 | MHC.CLN ---
F/U PATIENT ATE 100% OF ENTREE AND DRANK 100% OF BEVERAGE THIS LUNCH. CONTINUE TO FOLLOW.
[2021-01-17] MEDS: Acetaminophen 325 MG TABLET 650 MG PO (17:12)
[2021-01-17 18:00] VITALS: BP 90/43; PULSE 76; RESP 17; TEMP 37.2; O2SAT 97
[2021-01-17] MEDS: Atorvastatin Calcium 10 MG TABLET PO (19:48)
[2021-01-17] MEDS: traZODone HCL 50 MG TABLET PO (19:58)
[2021-01-18] MEDS: Levothyroxine Sodium 75 MCG TABLET PO (05:58)
[2021-01-18 08:32] VITALS: BP 102/54; PULSE 71; RESP 14; TEMP 36.8; O2SAT 98
[2021-01-18] MEDS: buPROPion HCl XL 300 MG TAB.ER.24H PO (08:40)
[2021-01-18] MEDS: OXcarbazepine 300 MG TABLET 600 MG PO ×2 (08:40→20:32)
[2021-01-18 10:57] VITALS: BMI 19.2
--- NOTE | 2021-01-18 15:47 | HO.PSYCHPN ---
Subjective Subjective Date of Service: 01/19/21 Reason For Visit: depression Subjective Notes: Conditional Voluntary Interim History: Pt continues to report improvement in mood. She reports less depressed mood,feeling more optimistic about future. She denies SI/HI. She reports sleeping and eating well. She continues to report constipation not open to trying something different than senna at this moment. Per nursing, pt increasingly more visible in the unit, social with select peers. No behavioral concerns. Medication Compliance: Yes Side effects from medications: No Attending Groups: Yes Review of Systems Acute medical concerns: No Review of Systems Review of Systems General - no fevers or chills Cardiovascular - no chest pain Respiratory - no shortness of breath or cough Abdominal- no abdominal pain, nausea, vomiting, diarrhea Yes all other systems are reviewed and are negative (psych not reviewed) Mental Status Exam Mental Status Exam Narrative: Appearance: casually groomed, fair hygiene in NAD Behavior:cooperative psychomotor:no agitation or retardation noted Speech:clear, normal rate/soft tone, spontaneous Thought process:mostly linear, some poverty of thought Thought content:no overt psychosis, feeling better in terms of depression but still low energy Mood: a little bit better Affect: blunted SI:none HI:none VH/AH:none Delusions:none Insight/judgment:fair x 2 Memory/cog:alert, oriented to place, situation, month not formally tested. Diagnostics Vital Signs (24Hr): Vital Signs - 24 hr 01/18/21 21:19 Temperature 98.6 F Pulse Rate 66 Respiratory Rate 17 Blood Pressure 98/48 L Pulse Oximetry 99 Body Mass Index 19.2 Labs Results: 01/15/21 06:18 01/15/21 06:18 Medications Medications Current Medications Acetaminophen (Acetaminophen 325 Mg Tablet) 650 mg PO Q6H PRN PRN Reason: Headache/Pain Mild Scale (1-3) Last Admin: 01/17/21 17:12 Dose: 650 mg Documented by: Al Hydroxide/Mg Hydroxide (Magnesium Hydrox/Alum Hydrox 30 Ml Oral.Susp) 30 ml PO Q6H PRN PRN Reason: Heartburn/Nausea Atorvastatin Calcium (Atorvastatin Calcium 10 Mg Tablet) 10 mg PO BEDTIME [facility] Last Admin: 01/18/21 20:32 Dose: 10 mg Documented by: Bupropion HCl (Bupropion Hcl Xl 300 Mg Tab.Er.24h) 300 mg PO DAILY [facility] Last Admin: 01/19/21 07:58 Dose: 300 mg Documented by: Hydroxyzine HCl (Hydroxyzine Hcl 25 Mg Tablet) 25 mg PO BEDTIME PRN PRN Reason: Anxiety Levothyroxine Sodium (Levothyroxine Sodium 75 Mcg Tablet) 75 mcg PO DAILY@0600 [facility] Last Admin: 01/19/21 05:52 Dose: 75 mcg Documented by: Magnesium Hydroxide (Milk Of Magnesia 30 Ml Oral.Susp) 30 ml PO DAILY PRN PRN Reason: Constipation Non-Formulary Medication (Melatonin) 6 mg PO BEDTIME PRN PRN Reason: Insomnia Oxcarbazepine (Oxcarbazepine 300 Mg Tablet) 600 mg PO BID [facility] Last Admin: 01/19/21 07:58 Dose: 600 mg Documented by: Senna/Docusate Sodium (Sennosides/Docusate Sodium Tablet) 2 tab PO BEDTIME [facility] Last Admin: 01/18/21 20:32 Dose: 2 tab Documented by: Trazodone HCl (Trazodone Hcl 50 Mg Tablet) 50 mg PO BEDTIME PRN PRN Reason: Insomnia Last Admin: 01/18/21 21:04 Dose: 50 mg Documented by: Allergies Allergies Allergy/AdvReac Type Severity Reaction Status Date / Time codeine AdvReac Gastrointestinal Verified 01/10/21 17:29 Upset Assessment & Plan Assessment & Plan (1) Routine medical exam: Status: Acute Code(s): Z00.00 - Encounter for general adult medical examination without abnormal findings Assessment and Plan: Continue Wellbutrin. No other changes in meds Assessment and Plan: The patient is a 62-year-old female with a long history of bipolar disorder who was admitted for failure to thrive and severe depressive symptoms. Plan 1. continue Wellbutrin XL up to 300 mg . 2. continue Trileptal up to 600 mg p.o. b.i.d. Greater than 50% of the session was spent on counseling and/or coordination of care Reason for contiued inpatient stay Substantial Risk for: stable for discharge
[2021-01-18] MEDS: Atorvastatin Calcium 10 MG TABLET PO (20:32)
[2021-01-18] MEDS: Sennosides/Docusate Sodium TABLET 2 TAB PO (20:32)
[2021-01-18] MEDS: traZODone HCL 50 MG TABLET PO (21:04)
[2021-01-18 21:19] VITALS: BP 98/48; PULSE 66; RESP 17; TEMP 37; O2SAT 99
[2021-01-19] MEDS: Levothyroxine Sodium 75 MCG TABLET PO (05:52)
[2021-01-19] MEDS: buPROPion HCl XL 300 MG TAB.ER.24H PO (07:58)
[2021-01-19] MEDS: OXcarbazepine 300 MG TABLET 600 MG PO ×2 (07:58→19:36)
--- NOTE | 2021-01-19 15:10 | MHC.CLN ---
F/U PATIENT WITH SIGNIFICANT, FAVORABLE WEIGHT GAIN SINCE ADMISSION, +9.3%. BMI=19.2. RD TO FOLLOW PATIENT WEEKLY.
--- NOTE | 2021-01-19 15:50 | P.PNPSI_ITS ---
Subjective Subjective Date of Service: 01/19/21 Reason For Visit: depression Interim History: Pt reports less depressed mood,feeling more optimistic about future, hoping to go home soon. She denies SI/HI. She reports sleeping and eating well. Per nursing, pt increasingly more visible in the unit, social with select peers. No behavioral concerns. agrees to try miralax for constipation. Medication Compliance: Yes Side effects from medications: No Attending Groups: Yes Review of Systems Acute medical concerns: No Review of Systems Review of Systems General - no fevers or chills Cardiovascular - no chest pain Respiratory - no shortness of breath or cough Abdominal- no abdominal pain, nausea, vomiting, diarrhea Yes all other systems are reviewed and are negative (psych not reviewed) Mental Status Exam Mental Status Exam Narrative: Appearance: casually groomed, fair hygiene in NAD Behavior:cooperative psychomotor:no agitation or retardation noted Speech:clear, normal rate/soft tone, spontaneous Thought process:mostly linear, some poverty of thought Thought content:no overt psychosis, feeling better in terms of depression but still low energy Mood: a little bit better Affect: blunted SI:none HI:none VH/AH:none Delusions:none Insight/judgment:fair x 2 Memory/cog:alert, oriented to place, situation, month not formally tested. Diagnostics Vital Signs (24Hr): Vital Signs - 24 hr 01/18/21 21:19 Temperature 98.6 F Pulse Rate 66 Respiratory Rate 17 Blood Pressure 98/48 L Pulse Oximetry 99 Body Mass Index 19.2 Labs Results: 01/15/21 06:18 01/15/21 06:18 Medications Medications Current Medications Acetaminophen (Acetaminophen 325 Mg Tablet) 650 mg PO Q6H PRN PRN Reason: Headache/Pain Mild Scale (1-3) Last Admin: 01/17/21 17:12 Dose: 650 mg Documented by: Al Hydroxide/Mg Hydroxide (Magnesium Hydrox/Alum Hydrox 30 Ml Oral.Susp) 30 ml PO Q6H PRN PRN Reason: Heartburn/Nausea Atorvastatin Calcium (Atorvastatin Calcium 10 Mg Tablet) 10 mg PO BEDTIME [facility] Last Admin: 01/18/21 20:32 Dose: 10 mg Documented by: Bupropion HCl (Bupropion Hcl Xl 300 Mg Tab.Er.24h) 300 mg PO DAILY [facility] Last Admin: 01/19/21 07:58 Dose: 300 mg Documented by: Hydroxyzine HCl (Hydroxyzine Hcl 25 Mg Tablet) 25 mg PO BEDTIME PRN PRN Reason: Anxiety Levothyroxine Sodium (Levothyroxine Sodium 75 Mcg Tablet) 75 mcg PO DAILY@0600 [facility] Last Admin: 01/19/21 05:52 Dose: 75 mcg Documented by: Magnesium Hydroxide (Milk Of Magnesia 30 Ml Oral.Susp) 30 ml PO DAILY PRN PRN Reason: Constipation Non-Formulary Medication (Melatonin) 6 mg PO BEDTIME PRN PRN Reason: Insomnia Oxcarbazepine (Oxcarbazepine 300 Mg Tablet) 600 mg PO BID [facility] Last Admin: 01/19/21 07:58 Dose: 600 mg Documented by: Senna/Docusate Sodium (Sennosides/Docusate Sodium Tablet) 2 tab PO BEDTIME [facility] Last Admin: 01/18/21 20:32 Dose: 2 tab Documented by: Trazodone HCl (Trazodone Hcl 50 Mg Tablet) 50 mg PO BEDTIME PRN PRN Reason: Insomnia Last Admin: 01/18/21 21:04 Dose: 50 mg Documented by: Allergies Allergies Allergy/AdvReac Type Severity Reaction Status Date / Time codeine AdvReac Gastrointestinal Verified 01/10/21 17:29 Upset Assessment & Plan Assessment & Plan (1) Routine medical exam: Status: Acute Code(s): Z00.00 - Encounter for general adult medical examination without abnormal findings Assessment and Plan: Continue Wellbutrin. No other changes in meds Assessment and Plan: The patient is a 62-year-old female with a long history of bipolar disorder who was admitted for failure to thrive and severe depressive symptoms. Plan 1. continue Wellbutrin XL up to 300 mg . 2. continue Trileptal up to 600 mg p.o. b.i.d. Greater than 50% of the session was spent on counseling and/or coordination of care Reason for contiued inpatient stay Substantial Risk for: stable for discharge
[2021-01-19] MEDS: Atorvastatin Calcium 10 MG TABLET PO (19:36)
[2021-01-19] MEDS: traZODone HCL 50 MG TABLET PO (19:36)
[2021-01-20] MEDS: Levothyroxine Sodium 75 MCG TABLET PO (05:53)
[2021-01-20] MEDS: OXcarbazepine 300 MG TABLET 600 MG PO ×2 (08:51→20:22)
[2021-01-20] MEDS: buPROPion HCl XL 300 MG TAB.ER.24H PO (08:51)
--- NOTE | 2021-01-20 10:06 | HO.PSYCHPN ---
Subjective Subjective Date of Service: 01/20/21 Reason For Visit: depression Interim History: Patient was seen in rounds today. She is doing better and has been brighter, feeling less depressed. No complaints. Records were reviewed. Treatment plan reviewed. No side effects reported. Eating and sleeping adequately. No changes were made. She is preparing for discharge early next week. Medication Compliance: Yes Side effects from medications: No Review of Systems Review of Systems General - no fevers or chills Cardiovascular - no chest pain Respiratory - no shortness of breath or cough Abdominal- no abdominal pain, nausea, vomiting, diarrhea Yes all other systems are reviewed and are negative (psych not reviewed) Mental Status Exam Mental Status Exam Narrative: Appearance: casually groomed, fair hygiene in NAD Behavior:cooperative psychomotor:no agitation or retardation noted Speech:clear, normal rate/soft tone, spontaneous Thought process:mostly linear, some poverty of thought Thought content:no overt psychosis, feeling better in terms of depression but still low energy Mood: a little bit better Affect: blunted SI:none HI:none VH/AH:none Delusions:none Insight/judgment:fair x 2 Memory/cog:alert, oriented to place, situation, month not formally tested. Diagnostics Vital Signs (24Hr): Body Mass Index 19.2 Labs Results: 01/15/21 06:18 01/15/21 06:18 Medications Medications Current Medications Acetaminophen (Acetaminophen 325 Mg Tablet) 650 mg PO Q6H PRN PRN Reason: Headache/Pain Mild Scale (1-3) Last Admin: 01/17/21 17:12 Dose: 650 mg Documented by: Al Hydroxide/Mg Hydroxide (Magnesium Hydrox/Alum Hydrox 30 Ml Oral.Susp) 30 ml PO Q6H PRN PRN Reason: Heartburn/Nausea Atorvastatin Calcium (Atorvastatin Calcium 10 Mg Tablet) 10 mg PO BEDTIME [facility] Last Admin: 01/19/21 19:36 Dose: 10 mg Documented by: Bupropion HCl (Bupropion Hcl Xl 300 Mg Tab.Er.24h) 300 mg PO DAILY [facility] Last Admin: 01/20/21 08:51 Dose: 300 mg Documented by: Hydroxyzine HCl (Hydroxyzine Hcl 25 Mg Tablet) 25 mg PO BEDTIME PRN PRN Reason: Anxiety Levothyroxine Sodium (Levothyroxine Sodium 75 Mcg Tablet) 75 mcg PO DAILY@0600 [facility] Last Admin: 01/20/21 05:53 Dose: 75 mcg Documented by: Magnesium Hydroxide (Milk Of Magnesia 30 Ml Oral.Susp) 30 ml PO DAILY PRN PRN Reason: Constipation Non-Formulary Medication (Melatonin) 6 mg PO BEDTIME PRN PRN Reason: Insomnia Oxcarbazepine (Oxcarbazepine 300 Mg Tablet) 600 mg PO BID [facility] Last Admin: 01/20/21 08:51 Dose: 600 mg Documented by: Polyethylene Glycol (Polyethylene Glycol 3350 17 Gm Powd.Pack) 17 gm PO DAILY PRN PRN Reason: Constipation Senna/Docusate Sodium (Sennosides/Docusate Sodium Tablet) 2 tab PO BEDTIME [facility] Last Admin: 01/19/21 22:12 Dose: Not Given Documented by: Trazodone HCl (Trazodone Hcl 50 Mg Tablet) 50 mg PO BEDTIME PRN PRN Reason: Insomnia Last Admin: 01/19/21 19:36 Dose: 50 mg Documented by: Allergies Allergies Allergy/AdvReac Type Severity Reaction Status Date / Time codeine AdvReac Gastrointestinal Verified 01/10/21 17:29 Upset Assessment & Plan Assessment & Plan (1) Routine medical exam: Status: Acute Code(s): Z00.00 - Encounter for general adult medical examination without abnormal findings Assessment and Plan: Continue Wellbutrin. No other changes in meds Assessment and Plan: The patient is a 62-year-old female with a long history of bipolar disorder who was admitted for failure to thrive and severe depressive symptoms. Plan 1. continue Wellbutrin XL up to 300 mg . 2. continue Trileptal up to 600 mg p.o. b.i.d. Greater than 50% of the session was spent on counseling and/or coordination of care Reason for contiued inpatient stay Substantial Risk for: other
[2021-01-20 18:00] VITALS: BP 104/53; RESP 16; TEMP 36.9; O2SAT 98
[2021-01-20] MEDS: Atorvastatin Calcium 10 MG TABLET PO (20:22)
[2021-01-20] MEDS: Sennosides/Docusate Sodium TABLET 2 TAB PO (20:22)
[2021-01-20] MEDS: traZODone HCL 50 MG TABLET PO (20:26)
[2021-01-21] MEDS: Levothyroxine Sodium 75 MCG TABLET PO (05:30)
[2021-01-21 05:42] VITALS: BP 101/53; PULSE 70; RESP 18; TEMP 36.9; O2SAT 96
[2021-01-21] MEDS: OXcarbazepine 300 MG TABLET 600 MG PO ×2 (08:06→21:15)
[2021-01-21] MEDS: buPROPion HCl XL 300 MG TAB.ER.24H PO (08:06)
--- NOTE | 2021-01-21 09:16 | HO.PSYCHPN ---
Subjective Subjective Date of Service: 01/21/21 Reason For Visit: depression Subjective Notes: Conditional Voluntary Interim History: Patient was seen in rounds today. She is doing better and preparing for discharge, possibly tomorrow. She is med compliant. Sleeping adequately with trazodone. No complaints or side effects. Eating adequately. No changes were made today. Records were reviewed and the case discussed in rounds Medication Compliance: No Side effects from medications: Yes Attending Groups: No Review of Systems Review of Systems General - no fevers or chills Cardiovascular - no chest pain Respiratory - no shortness of breath or cough Abdominal- no abdominal pain, nausea, vomiting, diarrhea Yes all other systems are reviewed and are negative (psych not reviewed) Diagnostics Vital Signs (24Hr): Vital Signs - 24 hr 01/20/21 18:00 01/21/21 05:42 Temperature 98.5 F 98.5 F Pulse Rate 70 Respiratory Rate 16 18 Blood Pressure 104/53 L 101/53 L Pulse Oximetry 98 96 Body Mass Index 19.2 Labs Results: 01/15/21 06:18 01/15/21 06:18 Medications Medications Current Medications Acetaminophen (Acetaminophen 325 Mg Tablet) 650 mg PO Q6H PRN PRN Reason: Headache/Pain Mild Scale (1-3) Last Admin: 01/17/21 17:12 Dose: 650 mg Documented by: Al Hydroxide/Mg Hydroxide (Magnesium Hydrox/Alum Hydrox 30 Ml Oral.Susp) 30 ml PO Q6H PRN PRN Reason: Heartburn/Nausea Atorvastatin Calcium (Atorvastatin Calcium 10 Mg Tablet) 10 mg PO BEDTIME [facility] Last Admin: 01/20/21 20:22 Dose: 10 mg Documented by: Bupropion HCl (Bupropion Hcl Xl 300 Mg Tab.Er.24h) 300 mg PO DAILY [facility] Last Admin: 01/21/21 08:06 Dose: 300 mg Documented by: Hydroxyzine HCl (Hydroxyzine Hcl 25 Mg Tablet) 25 mg PO BEDTIME PRN PRN Reason: Anxiety Levothyroxine Sodium (Levothyroxine Sodium 75 Mcg Tablet) 75 mcg PO DAILY@0600 [facility] Last Admin: 01/21/21 05:30 Dose: 75 mcg Documented by: Magnesium Hydroxide (Milk Of Magnesia 30 Ml Oral.Susp) 30 ml PO DAILY PRN PRN Reason: Constipation Non-Formulary Medication (Melatonin) 6 mg PO BEDTIME PRN PRN Reason: Insomnia Oxcarbazepine (Oxcarbazepine 300 Mg Tablet) 600 mg PO BID [facility] Last Admin: 01/21/21 08:06 Dose: 600 mg Documented by: Polyethylene Glycol (Polyethylene Glycol 3350 17 Gm Powd.Pack) 17 gm PO DAILY PRN PRN Reason: Constipation Senna/Docusate Sodium (Sennosides/Docusate Sodium Tablet) 2 tab PO BEDTIME [facility] Last Admin: 01/20/21 20:22 Dose: 2 tab Documented by: Trazodone HCl (Trazodone Hcl 50 Mg Tablet) 50 mg PO BEDTIME PRN PRN Reason: Insomnia Last Admin: 01/20/21 20:26 Dose: 50 mg Documented by: Allergies Allergies Allergy/AdvReac Type Severity Reaction Status Date / Time codeine AdvReac Gastrointestinal Verified 01/10/21 17:29 Upset Assessment & Plan Assessment & Plan (1) Routine medical exam: Status: Acute Code(s): Z00.00 - Encounter for general adult medical examination without abnormal findings Assessment and Plan: Continue Wellbutrin. No other changes in meds Assessment and Plan: The patient is a 62-year-old female with a long history of bipolar disorder who was admitted for failure to thrive and severe depressive symptoms. Plan 1. continue Wellbutrin XL up to 300 mg . 2. continue Trileptal up to 600 mg p.o. b.i.d. Reason for contiued inpatient stay Substantial Risk for: other
--- NOTE | 2021-01-21 13:52 | PC.NURSE ---
Patient is pleasant , calm and cooperative upon approach. Appears neatly groomed. Speech is clear and appropriate, Memory is intact. Patient is med compliant. Attending groups. Spending time in the common area with peers enjoying football game. Looking forward to going home. Future oriented.
[2021-01-21 18:58] VITALS: BP 91/45; PULSE 71; RESP 16; TEMP 36.3; O2SAT 98
[2021-01-21] MEDS: Atorvastatin Calcium 10 MG TABLET PO (21:14)
[2021-01-21] MEDS: traZODone HCL 50 MG TABLET PO (21:19)
[2021-01-21] MEDS: Sennosides/Docusate Sodium TABLET 2 TAB PO (21:19)
[2021-01-21] MEDS: Acetaminophen 325 MG TABLET 650 MG PO (22:43)
[2021-01-22] MEDS: Levothyroxine Sodium 75 MCG TABLET PO (06:35)
[2021-01-22] MEDS: OXcarbazepine 300 MG TABLET 600 MG PO (08:33)
[2021-01-22] MEDS: buPROPion HCl XL 300 MG TAB.ER.24H PO (08:33)
[2021-01-22 08:35] VITALS: BP 105/52; PULSE 69; RESP 16; TEMP 36.9; O2SAT 97
--- NOTE | 2021-01-22 09:45 | P.DS_ITS ---
DS: Providers Provider Date of Service: 01/22/21 Date of admission: 01/10/21 16:08 Date of discharge: 01/22/21 Primary care physician: Unknown Physician Consults: 01/12/21 04:58 Consult to Hospitalist Routine Consulting Provider: Hospitalist Reason For Exam: medical clearance; admitted from another ER Attending physician on discharge: aPrker Bolton DS: Diagnosis Discharge Diagnosis (1) Bipolar disorder with severe depression: Status: Acute DS: Medications Discharge Medications Home Medications: Home Medications Medication Instructions Recorded Confirmed citalopram 40 mg PO DAILY 01/10/21 01/10/21 levothyroxine 75 mcg capsule 75 mcg PO DAILY 01/10/21 01/10/21 melatonin 5 mg tablet 5 mg PO BEDTIME PRN 01/10/21 01/10/21 oxcarbazepine 300 mg tablet 300 mg PO QAM 01/10/21 01/10/21 oxcarbazepine 300 mg tablet 600 mg PO BEDTIME 01/10/21 01/10/21 simvastatin 20 mg tablet 20 mg PO BEDTIME 01/10/21 01/10/21 Mental Status Exam Mental Status Exam Patient Appearance: Well Grooomed Patient Orientation: Person, Place and Situation Level of Consciousness: Awake Patient Behavior: Appropriate and Cooperative Mood Description: Constricted Affect Description: Calm Patient Cognition Impaired: No Ability to Follow Directions: Good Speech Pattern: Clear Memory Description: Intact Hallucinations: None Delusions: Not Present Thought Process: Linear Thought Content: positive for Circumstantial and positive for Poverty of Content Judgement: Fair DS: Summary Hospital Course Hospital Course: The patient was initially admitted into this facility due to exacerbation of depressive symptoms elicited by depressed mood, anhedonia, lack of energy, feelings of hopelessness and passive suicidal ideation with inability to take care of herself. She she had several visits from the police to check if she was doing fine, finally she was admitted into the ED and transferred here for stabilization. She carries a diagnosis of bipolar disorder and apparently her depressive symptoms worsened after the passing in February 2020. We will review her medications and she agreed to change her SSRI to Wellbutrin. Also, we contact her son and he reported that her medications are not controlling her darell so we increased Trileptal up to 600 mg p.o. b.i.d. as a mood stabilizer. The patient attended groups, her mood improved and she was not suicidal anymore. We discussed discharge planning and she agreed to add ancillary services. Since there were no safety concerns discharge plan was discussed Time spent discussing smoking cessation with patient: 3 to 10 minutes Status at Discharge Cognitive/behavioral status at discharge: At baseline Functional status at discharge: independent ambulation Overall status at discharge: patient is back to baseline Time Spent with Patient Time attestation: Total time spent providing and/or coordinating discharge services: Time spent: Less than 30 minutes Discharge Plan Discharge Patient Disposition: Home, Self-Care Discharge Diagnosis: Bipolar disorder type 1 most recent episode depressed Referrals: [email or web address] [Other] - 1 Week (Meals on Wheels to resume 01/24/21, and home care referral made. Rehana from [email or web address] will follow up with you once you return home to schedule intake appointment. ) Padmini (therapist) [Other] - 01/24/21 11:00 am (Appointment is in person) Shauna Saavedra (psychiatrist) [Other] - 01/31/21 10:00 am (Appointment is in person) Physician,Unknown [Primary Care Provider] - 1 Week Discharge Medications: New trazodone 50 mg Tablet 50 mg PO BEDTIME PRN (Reason: Insomnia) 30 Days Qty: 30 RF: 0 sennosides-docusate sodium [Senna Plus] 8.6-50 mg Tablet 2 tab PO BEDTIME 30 Days Qty: 60 RF: 0 oxcarbazepine [Trileptal] 600 mg tablet 600 mg PO BID 30 Days Qty: 60 RF: 0 melatonin 5 mg tablet 5 mg PO BEDTIME PRN (Reason: sleep) Qty: 30 RF: 0 bupropion HCl [Wellbutrin XL] 300 mg tablet extended release 24 hr 300 mg PO QAM Qty: 30 RF: 0 Continued levothyroxine 75 mcg Capsule 75 mcg PO DAILY 30 Days Qty: 30 RF: 0 simvastatin 20 mg Tablet 20 mg PO BEDTIME 30 Days Qty: 30 RF: 0 Discontinued citalopram 40 mg PO DAILY RF: 0 oxcarbazepine 300 mg Tablet 300 mg PO QAM RF: 0 oxcarbazepine 300 mg Tablet 600 mg PO BEDTIME RF: 0 melatonin 5 mg Tablet 5 mg PO BEDTIME PRN (Reason: Insomnia) RF: 0 Discharge Orders: Discharge Order (Routine); Ordered 01/22/21 Ordered By: Parker Bolton Diet: advance to usual diet Activity on Discharge: As tolerated Stand Alone Forms: Patient Portal Discharge page Care Plan Goals: Care plan goals of reading achieved in the unit Health Concerns: Continue treatment with primary care physician Plan of Treatment: Continue medication treatment at [facility] and psychotherapy Assessment: The patient is an elderly female with a history of bipolar disorder admitted for recent episode of depression. We change her antidepressants to Wellbutrin to target depression with for improvement. At this moment safe in the community
== END 2021-01-22 13:17 | disposition home or self-care (01) | DRG 753 ==
PROVIDERS: Admitting Provider Psychiatry & Neurology Psychiatry; Visit Provider Psychiatry & Neurology Psychiatry
DX: F31.4 Bipolar disorder, current episode depressed, severe, without psychotic features (principal); R45.851 Suicidal ideations; E03.9 Hypothyroidism, unspecified; E78.5 Hyperlipidemia, unspecified; K59.00 Constipation, unspecified; Z79.890 Hormone replacement therapy; Z88.5 Allergy status to narcotic agent; Z79.899 Other long term (current) drug therapy
CPT/HCPCS: 36415; 80048; 80061; 83036; 84443; 85025